=== PATIENT | male | born 1975 | race Caucasian/White ===

== ENCOUNTER 2022-03-14 19:01 | Emergency (ER) | payer OTHER, SELFPAY ==
--- NOTE | 2022-03-14 20:44 | CRLHL7_ITS ---
For Patients: As a result of the Cures Act, medical imaging exams and procedure reports are released immediately into your electronic medical record. You may view this report before your referring provider. If you have questions, please contact your health care provider. INDICATION: Diagnosed with pneumonia 2 weeks ago. 2 kinds of antibiotics. Tired, cough, fever, Cough fever TECHNIQUE: Chest radiograph 2 views COMPARISON: 06/21/2021 FINDINGS: Mediastinum: The mediastinum is normal in appearance. The heart silhouette is normal in size and morphology. Lung: Small lung volumes are present with mild left basilar atelectasis. No sign of pleural effusion seen. No pneumothorax is identified. Bone and Soft tissue: A metallic ring disc prosthesis is noted at the C6-7 level. IMPRESSION: 1. Small lung volumes are present with mild left basilar atelectasis. Dictated by Santy Shah MD @ 03/14/2022 10:04:54 PM Dictated by: Santy Shah MD @ 03/14/2022 22:04:58 (Electronically Signed)
[2022-03-14 20:45] VITALS: BP 119/77; PULSE 122; RESP 20; TEMP 38.2; O2SAT 98; BMI 25.8
--- NOTE | 2022-03-14 20:53 | ED.GENADULT ---
HPI - General Adult General Date Seen: 03/14/22 Chief complaint: Cough Stated complaint: Pneumonia Time Seen by Provider: 03/14/22 20:26 Source: patient History of Present Illness HPI narrative: 47-year-old male presents emergency room with 2 weeks of worsening cough and pleuritic chest pain. Two weeks ago he was 1st developing a cough. He was seen in the emergency department in [place] for evaluation there he had a chest CT scan which showed no pulmonary embolism. He was seen to have a nodular opacity in the posterior lateral left lower lobe at the left lung base which was nonspecific. There was concern of a rounded pneumonia. He had some atelectasis in the dependent aspects of the bilateral lower lobe and minimal reticular nodular ground-glass opacity in the right upper lobe, most likely infectious or inflammatory. Was started on doxycycline which he took for about 10 days. Ten days later he returned to that emergency department and was switched to a Zithromax in. He has continued to be feeling cough and shortness of breath. He continues to have pleuritic chest pain. It hurts when he takes a deep breath or coughs. Past medical history is notable for rheumatoid arthritis. He is treated with Rituxan every 6 months. He was evaluated by pulmonology in November and felt to have interstitial lung disease. He has had recurrent emergency department visits for cough and chest pain. Related Data Home Medications Medication Instructions Recorded Confirmed azithromycin 250 mg tablet mg 03/14/22 colchicine 0.6 mg tablet mg 03/14/22 folic acid 1 mg tablet 03/14/22 methotrexate sodium 2.5 mg tablet mg 03/14/22 rituximab 1,400 mg/11.7 mL (120 ml SUBCUT 03/14/22 mg/mL)-hyaluronidase subcutaneous soln (Rituxan Hycela) Allergies Allergy/AdvReac Type Severity Reaction Status Date / Time No Known Drug Allergies Allergy Verified 03/14/22 20:48 Review of Systems Narrative: he reports a loss of appetite. No abdominal pain. No vomiting. No diarrhea. [facility] Medical History (Updated 03/14/22 @ 21:02 by Javi Almanza MD) Carpal tunnel syndrome of left wrist Epilepsy Interstitial lung disease Myositis Rheumatoid arthritis Sjogren's disease Surgical History (Updated 03/14/22 @ 21:02 by Javi Almanza MD) H/O mastoidectomy History of hernia repair Hx of cervical discectomy Status post tonsillectomy and adenoidectomy Exam Narrative: Exam Narrative: He is alert and appears in mild distress. Is increased rate and work of breathing. He appears fatigued. Pinnas external canals TMs normal. Oropharynx normal. Eyes normal. Neck is supple without mass or adenopathy. Respirations with no focal consolidation. No wheezing. Rare basilar crackle. Cardiovascular: S1, S2, regular tachycardia. No gallop or rub. Abdomen: Bowel sounds active. Abdomen is soft without tenderness or mass. Extremities without edema. Good peripheral pulses. Const: Vital Signs, click to edit/add: Vital Signs - 24 hr 03/14/22 20:45 Temperature 100.7 F H Pulse Rate [Right Pulse Oximeter] 122 H Respiratory Rate 20 Blood Pressure [Ri ght Upper Arm] 119/77 Pulse Oximetry 98 Documenting provider has reviewed patient's vital signs: yes Course Vital Signs Vital signs: Initial Vital Signs Temperature 100.7 F H 03/14/22 20:45 Temperature Source Oral 03/14/22 20:45 Pulse Rate 122 H 03/14/22 20:45 Respiratory Rate 20 03/14/22 20:45 Blood Pressure 119/77 03/14/22 20:45 Blood Pressure Mean 91 03/14/22 20:45 Blood Pressure Position Standing 03/14/22 20:45 Pulse Oximetry 98 03/14/22 20:45 Oxygen Delivery Method 03/14/22 20:45 Vital Signs Temperature 100.7 F H 03/14/22 20:45 Pulse Rate 122 H 03/14/22 20:45 Respiratory Rate 20 03/14/22 20:45 Blood Pressure 119/77 03/14/22 20:45 Pulse Oximetry 98 03/14/22 20:45 Temperature 100.7 F H 03/14/22 20:45 Pulse Rate 122 H 03/14/22 20:45 Respiratory Rate 20 03/14/22 20:45 Blood Pressure 119/77 03/14/22 20:45 Pulse Oximetry 98 03/14/22 20:45 Discharge Plan Discharge Prescriptions: No Action azithromycin 250 mg tablet 0RF Label Comments: TAKE 2 TABLETS BY MOUTH FOR 1 DAY THEN TAKE 1 TABLET BY MOUTH DAILY FOR 4 DAYS methotrexate sodium 2.5 mg tablet 0RF Label Comments: TAKE 9 TABLET BY ORAL ROUTE EVERY WEEK folic acid 1 mg tablet 0RF Label Comments: TAKE 1 TABLET BY MOUTH EVERY DAY IN THE MORNING colchicine 0.6 mg tablet 0RF Rituxan Hycela 1,400 mg/11.7 mL (120 mg/mL) solution SUBCUT 0RF Label Comments: infusion every 6 months Follow Up/Referrals: Traci Xavier MD [Primary Care Provider] -
[2022-03-14 21:09] LABS: HCO3 VBG 26 mmol/L (21-28); PCO2 VBG 37 mmHG (40-50); PO2 VBG 25.1 mmHG (25-47); pH VBG 7.457 (7.32-7.43)
[2022-03-14 21:10] VITALS: PULSE 118; RESP 20; O2SAT 97
[2022-03-14 21:13] LABS: Hematocrit 35.6 % (37.0-53.0); Hemoglobin* 11.4 gm/dL (13.5-17.5); Immature Granulocytes Abs Auto 0.04 K/uL (0.00-0.30); Lymphocytes Percent Auto 6.4 % (20-44); Mean Corpuscular HGB Conc 32 gm/dL (32-36); Mean Corpuscular Hemoglobin 30 pg (26-34); Mean Corpuscular Volume 93 fL (80-100); Monocytes Percent Auto 12.1 % (0.0-11.0); Neutrophils Percent Auto 81.2 % (42.0-72.0); Platelet Count* 271 K/uL (140-440); RDW Coefficient of Variation % 12.7 % (11.5-15.5); Red Blood Count 3.85 m/uL (4.30-5.90); White Blood Count* 12.18 K/uL (4.50-11.00)
[2022-03-14 21:15] LABS: Slide Review Reflex No
[2022-03-14] MEDS: KETOROLAC 15 MG/ML inj IVP (21:20)
[2022-03-14 21:28] LABS: Chloride* 102 mmol/L (96-114); Potassium* 3.9 mmol/L (3.6-5.1); Sodium* 135 mmol/L (135-149)
[2022-03-14 21:30] LABS: Bilirubin Total* 0.6 mg/dL (0.1-1.5); Creatinine* 1.1 mg/dL (0.5-1.5); Est. Creatinine Clearance* 85.72; Estimated Glomerular Filt Rate 83 ml/min
[2022-03-14 21:31] LABS: Alanine Aminotransferase* 17 U/L (4-50); Alkaline Phosphatase* 76 U/L (40-150); Aspartate Amino Transferase* 22 U/L (12-35); Blood Urea Nitrogen* 9 mg/dL (5-24); Carbon Dioxide* 26 mmol/L (20-32); Glucose* 120 mg/dL (60-115); Total Protein* 6.8 g/dL (6.0-8.3)
[2022-03-14 21:32] LABS: Calcium* 8.4 mg/dL (8.4-10.6); D Dimer Quantitative* 3.07 ug/ml (0.00-0.50)
[2022-03-14 21:40] LABS: NT Pro B Type NatriureticPept* 224 PG/mL (0-125)
[2022-03-14 21:46] LABS: C Reactive Protein* 13.3 mg/dL (0.5-1.0); Troponin I* 0.19 ng/mL (0.01-0.04)
--- NOTE | 2022-03-14 21:49 | ED.NURSE ---
Lab called and notified of critical trop 0.19. Informed Randall Julio and Dr. Almanza of the lab level.
--- NOTE | 2022-03-14 21:55 | CRLHL7_ITS ---
For Patients: As a result of the Century Cures Act, medical imaging exams and procedure reports are released immediately into your electronic medical record. You may view this report before your referring provider. If you have questions, please contact your health care provider. INDICATION: Chest pain, elevated D-dimer, known pneumonia for 2 weeks now TECHNIQUE: CT chest with i.v. contrast using pulmonary angiographic technique. Coronal and sagittal reformats were obtained. CONTRAST: 95 mL Isovue 370 COMPARISON: 12/02/2020 FINDINGS: Cardiovascular: The pulmonary arteries are unremarkable in enhancement with no evidence of acute pulmonary embolism. The heart has an unremarkable appearance and size. No sign of aneurysm in the thoracic aorta. Mediastinum: No mass or adenopathy seen. Lung: Patchy bibasilar consolidations present and similar in appearance to prior exam. There is a stable 5 mm nodule present in the right upper lobe on image 60, series 5. Pleura and pericardium: Trace left pleural effusion is noted. A new large pericardial effusion is present measuring 2.2 cm in maximal width. Chest wall and axilla: No mass or adenopathy seen. Bone: Unremarkable for age. Upper abdomen: Unremarkable. IMPRESSIONS: 1. No CT evidence of acute pulmonary emboli seen. 2. A new large pericardial effusion is present measuring 2.2 cm in maximal width. 3. Trace left pleural effusion is noted. 4. Patchy bibasilar consolidations present and similar in appearance to prior exam. These findings can be seen with atelectasis and/or pneumonia. 5. There is a stable 5 mm nodule present in the right upper lobe on image 60, series 5. If the patient has a high risk stratification, optional followup Chest CT in 12 months is advised in accordance with the 2017 Revised Fleischner Society Recommendations. Dictated by Santy Shah MD @ 03/14/2022 11:16:51 PM Please note that all CT scans at this facility use dose modulation, iterative reconstruction, and/or weight-based dosing when appropriate to reduce radiation dose to as low as reasonably achievable. Dictated by: Santy Shah MD @ 03/14/2022 23:17:24 (Electronically Signed)
[2022-03-14 22:14] LABS: SARS PCR* Negative SARS-CoV-2 (Negative)
--- NOTE | 2022-03-14 22:33 | ED.NURSE ---
Pt transported to main ED via wheelchair.
[2022-03-14 22:45] LABS: Troponin I* 0.19 ng/mL (0.01-0.04)
--- NOTE | 2022-03-14 22:56 | ED.NURSE ---
Pt asking if he can take his nightly epilepsy Carbamazepine medication and zyrtec. Per MD Dunne, okay to take. Pt also c/o 02/27 chest pain. MD Dunne aware and requests update to MD Almanza. Per MD Almanza, pt may take Morphine.
[2022-03-14 22:58] VITALS: BP 125/83; PULSE 115; RESP 18; O2SAT 98
[2022-03-14 23:00] VITALS: BP 121/66; PULSE 121; RESP 18; O2SAT 97
[2022-03-14] MEDS: HYDROmorphone 0.5 mg/0.5 ml inj IVP (23:14)
[2022-03-14 23:30] VITALS: BP 127/75; PULSE 117; RESP 18; O2SAT 93
--- NOTE | 2022-03-15 | ED.NURSE ---
pt. accepted to [facility] for transfer. will call when bed is available.
--- NOTE | 2022-03-15 00:08 | ED.GENADULT ---
HPI - General Adult General Date Seen: 03/14/22 Chief complaint: Cough Stated complaint: Pneumonia Time Seen by Provider: 03/14/22 20:26 Source: patient Mode of arrival: ambulatory History of Present Illness HPI narrative: 47-year-old male with 2 week history of progressive chest pain, dyspnea, fever and cough. Twelve do is go he was seen in the [place] [facility] where he was evaluated including chest CT scan. This showed a infiltrate possibly representing an pneumonia. He was started on doxycycline. That chest CT showed no pulmonary embolism. He finished to call 10 day course of doxycycline with progressive worsening of his symptoms during that time. He was seen again where he was started on a Zithromax in. Over this past weekend he has gotten worse with worsening chest heaviness and dyspnea. Past medical history is notable for a diagnosis of rheumatoid arthritis which has been most recently treated with Rituxan. In November he was seen by a desktop analyst who diagnosed him with interstitial lung disease presumably related to his rheumatoid arthritis. Patient tells me in the past he has had episodes of cough and chest pain similar to this. He has never been diagnosed with a cardiac condition or pericardial effusion. He has no other history of lung disease, asthma, COPD except for recent diagnosis of interstitial lung disease. No history of pulmonary embolism or thromboembolic disease. He has not had a history of opportunistic infections related to his therapy for rheumatoid arthritis Related Data Home Medications Medication Instructions Recorded Confirmed azithromycin 250 mg tablet mg 03/14/22 colchicine 0.6 mg tablet mg 03/14/22 folic acid 1 mg tablet 03/14/22 methotrexate sodium 2.5 mg tablet mg 03/14/22 rituximab 1,400 mg/11.7 mL (120 ml SUBCUT 03/14/22 mg/mL)-hyaluronidase subcutaneous soln (Rituxan Hycela) Allergies Allergy/AdvReac Type Severity Reaction Status Date / Time No Known Drug Allergies Allergy Verified 03/14/22 20:48 Review of Systems Narrative: Patient reports that he has not had other respiratory illness. He is not aware of COVID exposure. He has had 2- COVID tests in the last 2 weeks. He has not had upper respiratory symptoms. He reports a poor appetite but no nausea or vomiting. Bowel function and bladder function been normal. He has not had any edema. [facility] Medical History (Updated 03/15/22 @ 00:02 by Javi Almanza MD) Carpal tunnel syndrome of left wrist Epilepsy Interstitial lung disease Myositis Rheumatoid arthritis Sjogren's disease Surgical History H/O mastoidectomy History of hernia repair Hx of cervical discectomy Status post tonsillectomy and adenoidectomy Social History Smoking Status: Never smoker Do you use any of these nicotine containing products: Smokeless Tobacco Second hand tobacco smoke exposure: No How often do you have a drink containing alcohol: monthly or less How many standard drinks containing alcohol do you have on a typical day: 1 or 2 How often do you have six or more drinks on one occasion: Never AUDIT-C Alcohol total score: 1 Non-prescribed substance use: denies use service: No Exam Narrative: Exam Narrative: He is alert and appears in mild distress with chest discomfort, mild tachypnea and increased work of breathing. Eyes are normal. Oropharynx normal. Neck is supple without mass or adenopathy. No jugular venous distension. Respirations are clear to auscultation without wheezing rales or rhonchi. Cardiovascular: S1, S2, regular tachycardia. Abdomen is soft without tenderness or mass. Bowel sounds are present. Extremities without edema. Good peripheral pulses. Const: Vital Signs, click to edit/add: Vital Signs - 24 hr 03/14/22 20:45 03/14/22 21:10 03/14/22 22:58 Temperature 100.7 F H Pulse Rate [Right Pulse Oximeter] 122 H 118 H 115 H Respiratory Rate 20 20 18 Blood Pressure [Ri ght Upper Arm] 119/77 125/83 Pulse Oximetry 98 97 98 03/14/22 23:00 03/14/22 23:30 Temperature Pulse Rate [Right Pulse Oximeter] 121 H 117 H Respiratory Rate 18 18 Blood Pressure [Ri ght Upper Arm] 121/66 127/75 Pulse Oximetry 97 93 Documenting provider has reviewed patient's vital signs: yes Course Course Hospital Course: Patient continued to have moderately severe chest pain through his emergency department stay. He initially received Toradol than Dilaudid. His blood pressure remained normal. He remained tachycardic with a pulse around 120 a normal sinus rhythm. His oxygen saturations were in the upper 90s. Temperature 100.7? Electrocardiogram sinus tachycardia and with ST depressions noted. Troponin 0.19 and stable on repeat after 70 minutes Vital Signs Vital signs: Initial Vital Signs Temperature 100.7 F H 03/14/22 20:45 Temperature Source Oral 03/14/22 20:45 Pulse Rate 122 H 03/14/22 20:45 Respiratory Rate 20 03/14/22 20:45 Blood Pressure 119/77 03/14/22 20:45 Blood Pressure Mean 91 03/14/22 20:45 Blood Pressure Position Standing 03/14/22 20:45 Pulse Oximetry 98 03/14/22 20:45 Oxygen Delivery Method 03/14/22 20:45 Vital Signs Temperature 100.7 F H 03/14/22 20:45 Pulse Rate 122 H 03/14/22 20:45 Respiratory Rate 20 03/14/22 20:45 Blood Pressure 119/77 03/14/22 20:45 Pulse Oximetry 98 03/14/22 20:45 Temperature 100.7 F H 03/14/22 20:45 Pulse Rate 117 H 03/14/22 23:30 Respiratory Rate 18 03/14/22 23:30 Blood Pressure 127/75 03/14/22 23:30 Pulse Oximetry 93 03/14/22 23:30 Medical Decision Making Lab Data Labs: Lab Results 03/14/22 03/14/22 03/14/22 Range/Units 20:52 20:52 20:52 WBC 12.18 H (4.50-11.00) K/uL RBC 3.85 L (4.30-5.90) m/uL Hgb 11.4 L (13.5-17.5) gm/dL Hct 35.6 L (37.0-53.0) % MCV 93 (80-100) fL MCH 30 (26-34) pg MCHC 32 (32-36) gm/dL RDW Coeff of Sayda 12.7 (11.5-15.5) % Plt Count 271 (140-440) K/uL Neut % (Auto) 81.2 H (42.0-72.0) % Lymph % (Auto) 6.4 L (20-44) % [place] % (Auto) 12.1 H (0.0-11.0) % Eos % (Auto) 0.0 (0.0-7.0) % Baso % (Auto) 0.0 (0.0-3.0) % Neut # (Auto) 9.90 H (1.7-7.0) K/uL Lymph # (Auto) 0.80 L (0.90-2.90) K/uL [place] # (Auto) 1.50 H (0.00-0.90) K/UL Eos # (Auto) 0.00 (0.00-0.50) K/uL Baso # (Auto) 0.00 (0.00-0.30) K/uL Abs Immat Gran (auto) 0.04 (0.00-0.30) K/uL D-Dimer Quant (PE/DVT) 3.07 H (0.00-0.50) ug/ml VBG pH (7.32-7.43) VBG pCO2 (40-50) mmHG VBG pO2 (25-47) mmHG VBG HCO3 (21-28) mmol/L Sodium 135 (135-149) mmol/L Potassium 3.9 (3.6-5.1) mmol/L Chloride 102 (96-114) mmol/L Carbon Dioxide 26 (20-32) mmol/L BUN 9 (5-24) mg/dL Creatinine 1.1 (0.5-1.5) mg/dL Estimated Creat Clear 85.72 Estimated GFR 83 ml/min Glucose 120 H (60-115) mg/dL Calcium 8.4 (8.4-10.6) mg/dL Total Bilirubin 0.6 (0.1-1.5) mg/dL AST 22 (12-35) U/L ALT 17 (4-50) U/L Alkaline Phosphatase 76 (40-150) U/L Troponin I 0.19 H* (0.01-0.04) ng/mL C-Reactive Protein 13.3 H (0.5-1.0) mg/dL NT-Pro-B Natriuret Pep (0-125) PG/mL Total Protein 6.8 (6.0-8.3) g/dL Albumin 4.0 (3.3-5.0) g/dL SARS-CoV-2 (PCR) (Negative) 03/14/22 03/14/22 03/14/22 Range/Units 20:52 20:52 22:05 WBC (4.50-11.00) K/uL RBC (4.30-5.90) m/uL Hgb (13.5-17.5) gm/dL Hct (37.0-53.0) % MCV (80-100) fL MCH (26-34) pg MCHC (32-36) gm/dL RDW Coeff of Sayda (11.5-15.5) % Plt Count (140-440) K/uL Neut % (Auto) (42.0-72.0) % Lymph % (Auto) (20-44) % [place] % (Auto) (0.0-11.0) % Eos % (Auto) (0.0-7.0) % Baso % (Auto) (0.0-3.0) % Neut # (Auto) (1.7-7.0) K/uL Lymph # (Auto) (0.90-2.90) K/uL [place] # (Auto) (0.00-0.90) K/UL Eos # (Auto) (0.00-0.50) K/uL Baso # (Auto) (0.00-0.30) K/uL Abs Immat Gran (auto) (0.00-0.30) K/uL D-Dimer Quant (PE/DVT) (0.00-0.50) ug/ml VBG pH 7.457 H (7.32-7.43) VBG pCO2 37 L (40-50) mmHG VBG pO2 25.1 (25-47) mmHG VBG HCO3 26 (21-28) mmol/L Sodium (135-149) mmol/L Potassium (3.6-5.1) mmol/L Chloride (96-114) mmol/L Carbon Dioxide (20-32) mmol/L BUN (5-24) mg/dL Creatinine (0.5-1.5) mg/dL Estimated Creat Clear Estimated GFR ml/min Glucose (60-115) mg/dL Calcium (8.4-10.6) mg/dL Total Bilirubin (0.1-1.5) mg/dL AST (12-35) U/L ALT (4-50) U/L Alkaline Phosphatase (40-150) U/L Troponin I 0.19 H* (0.01-0.04) ng/mL C-Reactive Protein (0.5-1.0) mg/dL NT-Pro-B Natriuret Pep 224 H (0-125) PG/mL Total Protein (6.0-8.3) g/dL Albumin (3.3-5.0) g/dL SARS-CoV-2 (PCR) (Negative) 03/14/22 Range/Units Unknown WBC (4.50-11.00) K/uL RBC (4.30-5.90) m/uL Hgb (13.5-17.5) gm/dL Hct (37.0-53.0) % MCV (80-100) fL MCH (26-34) pg MCHC (32-36) gm/dL RDW Coeff of Sayda (11.5-15.5) % Plt Count (140-440) K/uL Neut % (Auto) (42.0-72.0) % Lymph % (Auto) (20-44) % [place] % (Auto) (0.0-11.0) % Eos % (Auto) (0.0-7.0) % Baso % (Auto) (0.0-3.0) % Neut # (Auto) (1.7-7.0) K/uL Lymph # (Auto) (0.90-2.90) K/uL [place] # (Auto) (0.00-0.90) K/UL Eos # (Auto) (0.00-0.50) K/uL Baso # (Auto) (0.00-0.30) K/uL Abs Immat Gran (auto) (0.00-0.30) K/uL D-Dimer Quant (PE/DVT) (0.00-0.50) ug/ml VBG pH (7.32-7.43) VBG pCO2 (40-50) mmHG VBG pO2 (25-47) mmHG VBG HCO3 (21-28) mmol/L Sodium (135-149) mmol/L Potassium (3.6-5.1) mmol/L Chloride (96-114) mmol/L Carbon Dioxide (20-32) mmol/L BUN (5-24) mg/dL Creatinine (0.5-1.5) mg/dL Estimated Creat Clear Estimated GFR ml/min Glucose (60-115) mg/dL Calcium (8.4-10.6) mg/dL Total Bilirubin (0.1-1.5) mg/dL AST (12-35) U/L ALT (4-50) U/L Alkaline Phosphatase (40-150) U/L Troponin I (0.01-0.04) ng/mL C-Reactive Protein (0.5-1.0) mg/dL NT-Pro-B Natriuret Pep (0-125) PG/mL Total Protein (6.0-8.3) g/dL Albumin (3.3-5.0) g/dL SARS-CoV-2 (PCR) Negative SARS-CoV-2 (Negative) ECG Data Attestation: I personally reviewed and interpreted this ECG as follows: (Sinus tachycardia, ST depression) Discharge Plan Discharge Clinical Impression: Acute myopericarditis Patient Disposition: [facility] Prescriptions: No Action azithromycin 250 mg tablet 0RF Label Comments: TAKE 2 TABLETS BY MOUTH FOR 1 DAY THEN TAKE 1 TABLET BY MOUTH DAILY FOR 4 DAYS methotrexate sodium 2.5 mg tablet 0RF Label Comments: TAKE 9 TABLET BY ORAL ROUTE EVERY WEEK folic acid 1 mg tablet 0RF Label Comments: TAKE 1 TABLET BY MOUTH EVERY DAY IN THE MORNING colchicine 0.6 mg tablet 0RF Rituxan Hycela 1,400 mg/11.7 mL (120 mg/mL) solution SUBCUT 0RF Label Comments: infusion every 6 months Stand Alone Forms: MyHealth Info Instructions
[2022-03-15 02:00] VITALS: BP 109/78; PULSE 112; RESP 16; TEMP 37.5; O2SAT 98
[2022-03-15 02:09] VITALS: BP 109/72; PULSE 112; RESP 16; TEMP 37.5
== END 2022-03-15 02:10 | disposition short-term general hospital (02) ==
PROVIDERS: Emergency Provider Family Medicine; PCP Family Medicine
DX: I30.9 Acute pericarditis, unspecified (principal)
CPT/HCPCS: 36415; 71046; 71260; 80053; 82803; 83880; 84484; 85025; 85379; 86140; 87040; 87635; 93005; 96374; 96375; 99284; 99285; J1170; J1885; Q9967

== ENCOUNTER 2022-03-15 02:05 | Outpatient (CLI) | payer OTHER, SELFPAY | END 2022-03-15 02:06 | disposition home or self-care (01) | PROVIDERS: PCP Family Medicine; Visit Provider Internal Medicine | DX: I31.9 Disease of pericardium, unspecified (principal) | CPT/HCPCS: A0425; A0427 ==

== ENCOUNTER 2022-08-26 09:04 | Emergency (ER) | payer OTHER, SELFPAY ==
[2022-08-26 09:16] VITALS: BP 128/94; PULSE 84; RESP 20; TEMP 36.5; O2SAT 100; BMI 28.1
[2022-08-26 09:30] VITALS: BP 140/85; PULSE 94; RESP 18; O2SAT 97
--- NOTE | 2022-08-26 09:38 | CRLHL7_ITS ---
For Patients: As a result of the Century Cures Act, medical imaging exams and procedure reports are released immediately into your electronic medical record. You may view this report before your referring provider. If you have questions, please contact your health care provider. Indication: Shortness of breath. Technique: Chest 2 views. Comparison: 06/21/2021. Findings/Impression: Cardiovascular and mediastinum: Heart size and vasculature are normal in caliber and appearance. Lungs and pleural spaces: Ill-defined opacities in both lower lobes, right greater than left. These are suspicious for pneumonia. Remainder of the lungs and pleural spaces are clear. No pneumothorax. Bones and soft tissues: No significant findings. Dictated by Bull Card MD @ 08/26/2022 11:10:12 AM (Electronically Signed)
[2022-08-26 09:56] LABS: Lactate* 2.3 mmol/L (0.5-1.9)
[2022-08-26 09:58] LABS: Basophils Absolute Auto 0.01 K/uL (0.00-0.30); Basophils Percent Auto 0.2 % (0.0-3.0); Eosinophils Absolute Auto 0.01 K/uL (0.00-0.50); Eosinophils Percent Auto 0.2 % (0.0-7.0); Hematocrit 40.5 % (37.0-53.0); Hemoglobin* 13.5 gm/dL (13.5-17.5); Immature Granulocytes Abs Auto 0.03 K/uL (0.00-0.30); Immature Granulocytes Pct Auto 0.5 %; Lymphocytes Percent Auto 17.1 % (20-44); Mean Corpuscular HGB Conc 33 gm/dL (32-36); Mean Corpuscular Hemoglobin 30 pg (26-34); Mean Corpuscular Volume 91 fL (80-100); Monocytes Percent Auto 11.9 % (0.0-11.0); Neutrophils Absolute Auto 4.55 K/uL (1.7-7.0); Neutrophils Percent Auto 70.1 % (42.0-72.0); Platelet Count* 93 K/uL (140-440); RDW Coefficient of Variation % 13.8 % (11.5-15.5); Red Blood Count 4.44 m/uL (4.30-5.90); White Blood Count* 6.48 K/uL (4.50-11.00)
[2022-08-26 10:00] VITALS: BP 113/86; PULSE 90; RESP 14; O2SAT 95
[2022-08-26 10:01] LABS: Slide Review Reflex No
[2022-08-26 10:11] LABS: Mono Screen* Negative (Negative)
[2022-08-26 10:16] LABS: Albumin* 4.2 g/dL (3.3-5.0); Chloride* 107 mmol/L (96-114); Sodium* 139 mmol/L (135-149)
[2022-08-26 10:17] LABS: Potassium* 3.9 mmol/L (3.6-5.1)
[2022-08-26 10:18] LABS: Creatinine* 0.9 mg/dL (0.5-1.5); Est. Creatinine Clearance* 101.47; Estimated Glomerular Filt Rate 106 ml/min
[2022-08-26 10:19] LABS: Alkaline Phosphatase* 80 U/L (40-150); Aspartate Amino Transferase* 35 U/L (12-35); Bilirubin Direct* 0.2 mg/dL (0.0-0.5); Bilirubin Total* 0.6 mg/dL (0.1-1.5); Blood Urea Nitrogen* 10 mg/dL (5-24); Carbon Dioxide* 23 mmol/L (20-32); Total Protein* 6.5 g/dL (6.0-8.3)
[2022-08-26 10:20] LABS: Alanine Aminotransferase* 34 U/L (4-50); Glucose* 100 mg/dL (60-115)
[2022-08-26 10:22] LABS: C Reactive Protein* 1.2 mg/dL (0.5-1.0)
[2022-08-26 10:31] LABS: Creatine Kinase* 61 U/L (54-186)
[2022-08-26 10:33] LABS: Troponin I* < 0.01 ng/mL (0.01-0.04)
[2022-08-26 10:35] LABS: Erythrocyte SedimentationRate* 16 mm/hr (2-15)
[2022-08-26 10:38] LABS: PCR FLU A Negative PCR FLU A (Negative); PCR FLU B Negative PCR FLU B (Negative); PCR RSV Negative PCR RSV (Negative)
[2022-08-26 10:46] LABS: SARS PCR* Negative SARS-CoV-2 (Negative)
--- NOTE | 2022-08-26 11:16 | ED_ITS ---
HPI - General Adult General Chief complaint: Weakness Stated complaint: Weakness in limbs, possible pneumonia Time Seen by Provider: 08/26/22 09:27 Source: patient Mode of arrival: ambulatory Limitations: no limitations History of Present Illness HPI narrative: 47-year-old male coming in today complaining of weakness, fatigue, shortness of breath going on for about a week now. Patient had his infusion of rituximab on 09/19 and then several days later developed these symptoms. He states that all extremities feel very weak, he is very tired, he feels like his ran a marathon every day after very little physical activity. He was seen in a different ER 2 days ago and diagnosed with pneumonia. He was placed on Levaquin. Patient tells me today that they may the wrong diagnosis and he is certain he does not have pneumonia. He is concerned that something else is going on causing his weakness and fatigue. He is unaware if he has had elevated temperatures however he does feel chills on and off. He has had a decreased appetite. Related Data Home Medications Medication Instructions Recorded Confirmed folic acid 1 mg tablet 1 mg PO DAILY 03/14/22 03/15/22 methotrexate sodium 2.5 mg tablet 2.5 mg PO .weekly 03/14/22 03/15/22 rituximab 1,400 mg/11.7 mL (120 11.7 ml subcut [id number] 03/14/22 03/15/22 mg/mL)-hyaluronidase subcutaneous soln (Rituxan Hycela) carbamazepine 300 mg 300 mg PO BID 03/15/22 03/15/22 capsule,extended release [id number] cetirizine 10 mg tablet 10 mg PO DAILY 03/15/22 03/15/22 naproxen 500 mg tablet 500 mg PO BID 03/15/22 03/15/22 omeprazole 40 mg capsule,delayed 40 mg PO DAILY 03/15/22 03/15/22 release prednisone 5 mg tablet 5 mg PO DAILY 03/15/22 03/15/22 Allergies Allergy/AdvReac Type Severity Reaction Status Date / Time amoxicillin AdvReac Intermediate Nausea Verified 08/26/22 09:16 azathioprine [From Imuran] AdvReac Intermediate Nausea Verified 08/26/22 09:16 Review of Systems Status of ROS: Reports: 10 or more systems reviewed and unremarkable except as noted in History and below [facility] Medical History Carpal tunnel syndrome of left wrist Epilepsy Interstitial lung disease Myositis Rheumatoid arthritis Sjogren's disease Surgical History H/O mastoidectomy History of hernia repair Hx of cervical discectomy Status post tonsillectomy and adenoidectomy Social History Smoking Status: Never smoker Do you use any of these nicotine containing products: Smokeless Tobacco Second hand tobacco smoke exposure: No How often do you have a drink containing alcohol: monthly or less How many standard drinks containing alcohol do you have on a typical day: 1 or 2 How often do you have six or more drinks on one occasion: Never AUDIT-C Alcohol total score: 1 Non-prescribed substance use: denies use service: No Exam Narrative: Exam Narrative: Well-nourished well-developed patient in no acute distress. Alert and oriented. Answers questions appropriately. Mood and affect are appropriate. Thoughts are goal oriented and rational. No tangential or magical thinking noted. Patient speaks in full sentences without needing to catch their breath. Does not appear ill or toxic. HEENT: Normocephalic atraumatic. Pupils are equally round reactive to light. Extraocular muscles are intact. Conjunctivae are moist without any icterus noted. Moist mucous membranes. Posterior pharynx is normal. Neck is soft without any lymphadenopathy or thyromegaly. No masses are appreciated. Cardiovascular: Heart is regular rate and rhythm S1 and S2 are present without any murmurs. Lungs: Clear to auscultation bilaterally no wheezes rhonchi or rales are appreciated. Patient takes deep breaths without any discomfort. Abdomen: Soft and nontender nondistended with normal bowel sounds. No guarding or rebound. Extremities: Bilateral lower extremities are without edema. Normal DP and PT pulses. Skin: Well perfused without any obvious rashes. Strength is 5/5 of the upper and lower extremities however, he can only sustain by pushing back against resistance for a few seconds before he gets tired and his extremities just fall to the bed. However when he is pushing back his strength is solid and 5/5. I do not appreciate any weakness. Reflexes are 2+ and symmetric at the knees. Cranial nerves 3-12 are normal. There is no nystagmus either horizontally or vertically. Gait is normal. Const: Vital Signs, click to edit/add: Vital Signs - 24 hr 08/26/22 09:16 Temperature 97.7 F Pulse Rate [Apical ] 84 Respiratory Rate 20 Blood Pressure [Ri ght Upper Arm] 128/94 H Pulse Oximetry 100 Oxygen Delivery Me thod Room Air Course Course Hospital Course: IV was established and labs were drawn. CBC did show thrombocytopenia with platelet count at 93,000. Lactate slightly elevated at 2.3. CRP 1.2. Troponin 0.01. EKG, read by me, shows normal sinus rhythm with a pulse of 88, incomplete right bundle-branch block, prolonged QT. Chest x-ray showing bilateral lower lobe pneumonia. I also consulted with Dr. 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 He recommended checking aldolase and CK. Aldolase is a send out however his CK was normal. This doctor did not feel that his recent infusion would have anything to do with his symptoms. Vital Signs Vital signs: Initial Vital Signs Temperature 97.7 F 08/26/22 09:16 Temperature Source Temporal Artery Scan 08/26/22 09:16 Pulse Rate 84 08/26/22 09:16 Pulse Rhythm 08/26/22 09:16 Respiratory Rate 20 08/26/22 09:16 Blood Pressure 128/94 H 08/26/22 09:16 Blood Pressure Mean 105 08/26/22 09:16 Blood Pressure Position Supine 08/26/22 09:16 Pulse Oximetry 100 08/26/22 09:16 Oxygen Delivery Method 08/26/22 09:16 Vital Signs Temperature 97.7 F 08/26/22 09:16 Pulse Rate 84 08/26/22 09:16 Respiratory Rate 20 08/26/22 09:16 Blood Pressure 128/94 H 08/26/22 09:16 Pulse Oximetry 100 08/26/22 09:16 Oxygen Delivery Method 08/26/22 09:16 Temperature 97.7 F 08/26/22 09:16 Pulse Rate 84 08/26/22 09:16 Respiratory Rate 20 08/26/22 09:16 Blood Pressure 128/94 H 08/26/22 09:16 Pulse Oximetry 100 08/26/22 09:16 Oxygen Delivery Method 08/26/22 09:16 Medical Decision Making MDM Narrative Medical decision making narrative: 47-year-old male with fatigue, weakness and pneumonia. I explained to the patient that pneumonia can cause fatigue and weakness and patient did not seem to believe me. I did my best to explain this to him and answer all the questions he had. He does have an appointment scheduled with his screw machine set up operator tool in 3 weeks. His screw machine set up operator tool group is aware that he was here today. We discussed returning to the ER for concerning symptoms. We discussed continuing his Levaquin and resting, staying hydrated. Patient had no other questions. Lab Data Lab results reviewed: Yes I reviewed the patient's lab results Labs: Lab Results 08/26/22 08/26/22 08/26/22 Range/Units 09:48 09:48 09:48 WBC 6.48 (4.50-11.00) K/uL RBC 4.44 (4.30-5.90) m/uL Hgb 13.5 (13.5-17.5) gm/dL Hct 40.5 (37.0-53.0) % MCV 91 (80-100) fL MCH 30 (26-34) pg MCHC 33 (32-36) gm/dL RDW Coeff of Sayda 13.8 (11.5-15.5) % Plt Count 93 L (140-440) K/uL Neut % (Auto) 70.1 (42.0-72.0) % Lymph % (Auto) 17.1 L (20-44) % [place] % (Auto) 11.9 H (0.0-11.0) % Eos % (Auto) 0.2 (0.0-7.0) % Baso % (Auto) 0.2 (0.0-3.0) % Neut # (Auto) 4.55 (1.7-7.0) K/uL Lymph # (Auto) 1.10 (0.90-2.90) K/uL [place] # (Auto) 0.80 (0.00-0.90) K/UL Eos # (Auto) 0.01 (0.00-0.50) K/uL Baso # (Auto) 0.01 (0.00-0.30) K/uL ESR 16 H (2-15) mm/hr Sodium (135-149) mmol/L Potassium (3.6-5.1) mmol/L Chloride (96-114) mmol/L Carbon Dioxide (20-32) mmol/L BUN (5-24) mg/dL Creatinine (0.5-1.5) mg/dL Estimated Creat Clear Estimated GFR ml/min Glucose (60-115) mg/dL Lactate (0.5-1.9) mmol/L Calcium (8.4-10.6) mg/dL Total Bilirubin (0.1-1.5) mg/dL Direct Bilirubin (0.0-0.5) mg/dL AST (12-35) U/L ALT (4-50) U/L Alkaline Phosphatase (40-150) U/L Total Creatine Kinase (54-186) U/L Troponin I (0.01-0.04) ng/mL C-Reactive Protein (0.5-1.0) mg/dL Total Protein (6.0-8.3) g/dL Albumin (3.3-5.0) g/dL TSH (0.270-4.20) uIU/mL SARS-CoV-2 (PCR) (Negative) Monoscreen Negative (Negative) Influenza Type A (PCR) (Negative) Influenza Type B (PCR) (Negative) RSV (PCR) (Negative) 08/26/22 08/26/22 08/26/22 Range/Units 09:48 09:48 09:48 WBC (4.50-11.00) K/uL RBC (4.30-5.90) m/uL Hgb (13.5-17.5) gm/dL Hct (37.0-53.0) % MCV (80-100) fL MCH (26-34) pg MCHC (32-36) gm/dL RDW Coeff of Sayda (11.5-15.5) % Plt Count (140-440) K/uL Neut % (Auto) (42.0-72.0) % Lymph % (Auto) (20-44) % [place] % (Auto) (0.0-11.0) % Eos % (Auto) (0.0-7.0) % Baso % (Auto) (0.0-3.0) % Neut # (Auto) (1.7-7.0) K/uL Lymph # (Auto) (0.90-2.90) K/uL [place] # (Auto) (0.00-0.90) K/UL Eos # (Auto) (0.00-0.50) K/uL Baso # (Auto) (0.00-0.30) K/uL ESR (2-15) mm/hr Sodium 139 (135-149) mmol/L Potassium 3.9 (3.6-5.1) mmol/L Chloride 107 (96-114) mmol/L Carbon Dioxide 23 (20-32) mmol/L BUN 10 (5-24) mg/dL Creatinine 0.9 (0.5-1.5) mg/dL Estimated Creat Clear 101.47 Estimated GFR 106 ml/min Glucose 100 (60-115) mg/dL Lactate 2.3 H (0.5-1.9) mmol/L Calcium 9.0 (8.4-10.6) mg/dL Total Bilirubin 0.6 (0.1-1.5) mg/dL Direct Bilirubin 0.2 (0.0-0.5) mg/dL AST 35 (12-35) U/L ALT 34 (4-50) U/L Alkaline Phosphatase 80 (40-150) U/L Total Creatine Kinase 61 (54-186) U/L Troponin I < 0.01 L (0.01-0.04) ng/mL C-Reactive Protein 1.2 H (0.5-1.0) mg/dL Total Protein 6.5 (6.0-8.3) g/dL Albumin 4.2 (3.3-5.0) g/dL TSH 4.610 H (0.270-4.20) uIU/mL SARS-CoV-2 (PCR) (Negative) Monoscreen (Negative) Influenza Type A (PCR) (Negative) Influenza Type B (PCR) (Negative) RSV (PCR) (Negative) 08/26/22 Range/Units 09:48 WBC (4.50-11.00) K/uL RBC (4.30-5.90) m/uL Hgb (13.5-17.5) gm/dL Hct (37.0-53.0) % MCV (80-100) fL MCH (26-34) pg MCHC (32-36) gm/dL RDW Coeff of Sayda (11.5-15.5) % Plt Count (140-440) K/uL Neut % (Auto) (42.0-72.0) % Lymph % (Auto) (20-44) % [place] % (Auto) (0.0-11.0) % Eos % (Auto) (0.0-7.0) % Baso % (Auto) (0.0-3.0) % Neut # (Auto) (1.7-7.0) K/uL Lymph # (Auto) (0.90-2.90) K/uL [place] # (Auto) (0.00-0.90) K/UL Eos # (Auto) (0.00-0.50) K/uL Baso # (Auto) (0.00-0.30) K/uL ESR (2-15) mm/hr Sodium (135-149) mmol/L Potassium (3.6-5.1) mmol/L Chloride (96-114) mmol/L Carbon Dioxide (20-32) mmol/L BUN (5-24) mg/dL Creatinine (0.5-1.5) mg/dL Estimated Creat Clear Estimated GFR ml/min Glucose (60-115) mg/dL Lactate (0.5-1.9) mmol/L Calcium (8.4-10.6) mg/dL Total Bilirubin (0.1-1.5) mg/dL Direct Bilirubin (0.0-0.5) mg/dL AST (12-35) U/L ALT (4-50) U/L Alkaline Phosphatase (40-150) U/L Total Creatine Kinase (54-186) U/L Troponin I (0.01-0.04) ng/mL C-Reactive Protein (0.5-1.0) mg/dL Total Protein (6.0-8.3) g/dL Albumin (3.3-5.0) g/dL TSH (0.270-4.20) uIU/mL SARS-CoV-2 (PCR) Negative SARS-CoV-2 (Negative) Monoscreen (Negative) Influenza Type A (PCR) Negative PCR FLU A (Negative) Influenza Type B (PCR) Negative PCR FLU B (Negative) RSV (PCR) Negative PCR RSV (Negative) Imaging Data Chest x-ray: Attestation: I have reviewed the pertinent imaging results. Radiologist's impression: Chest 2 views. Comparison: 06/21/2021. Findings/Impression: Cardiovascular and mediastinum: Heart size and vasculature are normal in caliber and appearance. Lungs and pleural spaces: Ill-defined opacities in both lower lobes, right greater than left. These are suspicious for pneumonia. Remainder of the lungs and pleural spaces are clear. No pneumothorax. Bones and soft tissues: No significant findings. ECG Data Attestation: I personally reviewed and interpreted this ECG as follows: Discharge Plan Discharge Clinical Impression: Weakness, Pneumonia Patient Disposition: Home, Self-Care Condition: Stable Additional Instructions: Continue taking your antibiotics as prescribed. Make sure you stay well hydrated and get as much rest as you need to. Return to the ER if you think that your symptoms are getting worse instead of better. Prescriptions: No Action methotrexate sodium 2.5 mg tablet 2.5 mg PO .weekly Label Comments: TAKE 9 TABLET BY ORAL ROUTE EVERY WEEK take on monday folic acid 1 mg tablet 1 mg PO DAILY Label Comments: TAKE 1 TABLET BY MOUTH EVERY DAY IN THE MORNING Rituxan Hycela 1,400 mg/11.7 mL (120 mg/mL) solution 11.7 ml SUBCUT [id number] Label Comments: infusion every 6 months carbamazepine 300 mg capsule, ER multiphase 12 hr 300 mg PO BID Label Comments: TAKE 1 CAPSULE BY MOUTH TWICE A DAY omeprazole 40 mg capsule,delayed release(DR/EC) 40 mg PO DAILY Label Comments: Take 1 capsule by mouth once a day cetirizine 10 mg tablet 10 mg PO DAILY Label Comments: Take 10 mg by mouth prednisone 5 mg tablet 5 mg PO DAILY Label Comments: TAKE 1 TABLET BY MOUTH EVERY DAY IN THE MORNING naproxen 500 mg tablet 500 mg PO BID Follow Up/Referrals: Los Ewing MD [Primary Care Provider] - Stand Alone Forms: [employer] Info Instructions
[2022-08-26 12:00] VITALS: BP 115/91; PULSE 86; RESP 15; O2SAT 96
[2022-08-28 19:03] LABS: Aldolase 5.4 U/L (1.2-7.6)
== END 2022-08-26 12:05 | disposition home or self-care (01) ==
PROVIDERS: Emergency Provider Family Medicine; PCP Family Medicine
DX: J18.9 Pneumonia, unspecified organism (principal)
CPT/HCPCS: 36415; 71046; 80048; 80076; 82085; 82550; 83605; 84443; 84484; 85025; 85651; 86140; 86308; 87502; 87634; 87635; 93005; 94761; 99284; 99285

== ENCOUNTER 2023-07-21 18:28 | Emergency (ER) | payer OTHER, SELFPAY ==
[2023-07-21] VITALS (22 sets, daily range): BP systolic 126–161; BP diastolic 80–104; PULSE 65–118; RESP 20; TEMP 35.3; O2SAT 96–100; BMI 22.8
--- NOTE | 2023-07-21 18:30 | CRLHL7_ITS ---
For Patients: As a result of the Century Cures Act, medical imaging exams and procedure reports are released immediately into your electronic medical record. You may view this report before your referring provider. If you have questions, please contact your health care provider. INDICATION: Fall. Hemotympanum. TECHNIQUE: Noncontrast CT images acquired through the brain. COMPARISON: CT brain 09/17/2016. FINDINGS: The ventricles and sulci are within normal limits for patient age. No mass effect or midline shift. The keith-white differentiation is maintained. Mild acute subarachnoid hemorrhage within the inferior right temporal sulcus (series 2, image 29). Soft tissue swelling in the left parieto-occipital scalp. No calvarial fracture. Postsurgical changes of right canal wall up mastoidectomy with adequate aeration of the mastoid bowl. Mild opacification of the left mastoid air cells. Moderate mucosal thickening and air-fluid level in the left maxillary sinus. Severe opacification of the left anterior ethmoid air cells and left frontal sinus. IMPRESSION: 1. Mild acute subarachnoid hemorrhage within an inferior right temporal sulcus. 2. Soft tissue swelling in the left parieto-occipital scalp. No calvarial fracture. 3. Mucosal thickening and air-fluid level in the left maxillary sinus can be seen in the setting of acute sinusitis. Severe opacification of the left anterior ethmoid air cells and left frontal sinus, compatible with left ostiomeatal unit obstruction/dysfunction. 4. Postsurgical changes of right canal wall up mastoidectomy. Please note that all CT scans at this facility use dose modulation, iterative reconstruction, and/or weight-based dosing when appropriate to reduce radiation dose to as low as reasonably achievable. Dictated by Donato Vázquez MD @ 07/21/2023 7:05:16 PM (Electronically Signed)
--- NOTE | 2023-07-21 18:30 | CRLHL7_ITS ---
For Patients: As a result of the Century Cures Act, medical imaging exams and procedure reports are released immediately into your electronic medical record. You may view this report before your referring provider. If you have questions, please contact your health care provider. INDICATION: Fall. TECHNIQUE: Noncontrast CT images acquired through the cervical spine. COMPARISON: CT cervical spine 09/17/2016. FINDINGS: Straightening of the cervical lordosis. Mild leftward cervical curvature. Vertebral heights maintained. No acute fracture or traumatic subluxation. Postsurgical changes of disc arthroplasty at C5-6. Mild retrolisthesis of C3 on C4. Moderate disc height loss at C3-4. Shallow posterior disc osteophyte complexes contributing up to mild spinal canal narrowing at C3-4. Multilevel uncinate spurring and facet arthropathy without high-grade neural foraminal stenosis. The lung apices are clear. IMPRESSION: 1. No acute fracture or traumatic subluxation. 2. Multilevel cervical spondylosis. 3. Disc arthroplasty at C5-6. Please note that all CT scans at this facility use dose modulation, iterative reconstruction, and/or weight-based dosing when appropriate to reduce radiation dose to as low as reasonably achievable. Dictated by Donato Vázquez MD @ 07/21/2023 7:10:08 PM (Electronically Signed)
[2023-07-21] MEDS: fentaNYL 100 MCG/2 ML inj 50 MCG IVP (18:43)
[2023-07-21] MEDS: ONDANSETRON 2 MG/ML inj 4 MG IVP ×2 (18:43→20:52)
[2023-07-21] MEDS: 0.9 % SODIUM CHLORIDE 1000 ml 1,000 ML IV (18:44)
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
--- NOTE | 2023-07-21 19:22 | ED.NURSE ---
Pt abrasions (L upper face/head, posterior head, bilateral knees, bilateral ankles, R hand/wrist, L shoulder, lower back) cleaned with sterile NS, gauze, and wound cleanser spray. Bacitracin, tegaderm, bandaids, gauze and coban applied as wound dressings on pt abrasions.
--- NOTE | 2023-07-21 19:25 | ED.NURSE ---
Pt abrasions (L upper face/head, posterior head, bilateral knees, bilateral ankles, R hand/wrist, L shoulder, lower back) cleaned with sterile NS, gauze, and wound cleanser spray. Bacitracin applied to all abrasions. Bandaids applied to abrasions on R hand and R wrist. Adaptic dressing, telfa, and paper tape used to bandage pt abrasion on lower back.
[2023-07-21] MEDS: lidocaine HCL 2 % JELLY (TOP) STERILE 6 ML TOPICAL (19:30)
[2023-07-21] MEDS: HYDROmorphone 0.5 mg/0.5 ml inj IVP (19:50)
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
--- NOTE | 2023-07-21 20:29 | ED.NURSE ---
in room to speak with pt about 72-hour hold and transfer to [facility]. Pt agitated upon having this conversation, pt states his is a liar and they are having a divorce and his is trying to take his kid. Pt informed by MD that marital issues can be addressed later but right now pt safety is the most important. Pt states he is going to leave and not permit transfer. Pt informed he legally cannot make that decision at this time and will not be permitted to leave. Pt requesting to speak with alone with room. Pt agreeable to this. Pt informed if situation escalates staff will intervene as necessary.
--- NOTE | 2023-07-21 20:51 | ED.NURSE ---
EMS in room to transfer pt. Pt voluntarily transferred to EMS [facility]. Pt given copy of 72-hour hold and pt rights form at this time.
--- NOTE | 2023-07-21 21:06 | ED.NURSE ---
Report called to [facility] JAIR GU.
== END 2023-07-21 21:00 | disposition short-term general hospital (02) ==
PROVIDERS: Emergency Provider Family Medicine; PCP Family Medicine
DX: S06.6X0A Traumatic subarachnoid hemorrhage without loss of consciousness, initial encounter (principal); T07.XXXA Unspecified multiple injuries, initial encounter; W13.2XXA Fall from, out of or through roof, initial encounter; Y92.096 Garden or yard of other non-institutional residence as the place of occurrence of the external cause
CPT/HCPCS: 70450; 72125; 81001; 93005; 94761; 96374; 96375; 96376; 99284; 99291; 99292; J1170; J2405; J3010; J7030

== ENCOUNTER 2023-07-21 20:30 | Outpatient (CLI) | payer OTHER, SELFPAY | END 2023-07-21 20:31 | disposition home or self-care (01) | LOC: AMB 07-24 13:22 | PROVIDERS: PCP Family Medicine; Visit Provider Internal Medicine | DX: I60.9 Nontraumatic subarachnoid hemorrhage, unspecified (principal) | CPT/HCPCS: A0425; A0426 ==